=== PATIENT | male | born 1960 ===

== ENCOUNTER 2019-05-30 19:21 | Observation (INO) | payer OTHER ==
[2019-05-30 19:49] VITALS: BMI 30.9
--- NOTE | 2019-05-30 19:55 | PDOC ---
History of Present Illness - General Chief Complaint: Chest Pain Stated Complaint: SENT BY PCP - History of Present Illness Initial Comments: The pt is a 58M w/ a history of HTN, HLD, and diet controlled DM who presents for evaluation of 1 week of worsening dyspnea on exertion and chest pain. The pain is achy/sharp, left-sided, sometimes associated with FARFAN, exacerbated by activity, and alleviated by rest. The pt had a positive stress test 1 week ago ( and since that time states his symptoms have worsened). He is scheduled for a cardiac cath on 06/13/19. He denies fevers/chills, vision changes, current CP or SOB, abdominal pain, N/V/ C/D, dysuria, hematuria, or changes in sensation PMH: HTN, HLD, DM, GERD PSH: Fistula surgery on back at age 19 Meds: Metoprolol, Atrovastatin, Lisinopril Allergies: Denies SH: Quit smoking 20 yrs ago, social EtOH, denies illicit drug use PCP: Dr. Emma Angel Cards: [facility] 05/30/19 20:16 Past History - Past Medical History Allergies/Adverse Reactions: Allergies Allergy/AdvReac Type Severity Reaction Status Date / Time No Known Allergies Allergy Verified 05/30/19 19:38 Home Medications: Ambulatory Orders Aspirin [ASA -] 1 tab PO DAILY 04/01/19 Famotidine [Pepcid] 1 tab PO DAILY 04/01/19 Lisinopril 1 tab PO DAILY 04/01/19 Atorvastatin Calcium [Lipitor] 10 mg PO DAILY 05/30/19 Metoprolol Succinate 25 mg PO DAILY 05/30/19 Cardiac Disorders: Yes COPD: No Diabetes: Yes HTN: Yes - Suicide/Smoking/Psychosocial Hx Smoking History: Former smoker Have you smoked in the past 12 months: No If you are a former smoker, when did you quit?: 1999 Information on smoking cessation initiated: No Drug/Substance Use Hx: No Review of Systems - Review of Systems Able to Perform ROS?: Yes Comments:: GENERAL/CONSTITUTIONAL: No fever or chills HEAD, EYES, EARS, NOSE AND THROAT: No change in vision. No change in hearing. No sore throat CARDIOVASCULAR: +exertional chest pain and HARTLEY RESPIRATORY: Denies cough GASTROINTESTINAL: No nausea, vomiting, diarrhea or constipation GENITOURINARY: No dysuria, frequency, or change in urination MUSCULOSKELETAL: No joint or muscle swelling or pain. No neck or back pain SKIN: No rash NEUROLOGIC: No headache, vertigo, loss of consciousness, or change in strength/ sensation ENDOCRINE: No increased thirst. No abnormal weight change HEMATOLOGIC/LYMPHATIC: No anemia, easy bleeding, or history of blood clots ALLERGIC/IMMUNOLOGIC: No hives or skin allergy 05/30/19 19:54 Is the patient limited Albanian proficient: No *Physical Exam - Vital Signs Last Vital Signs Temp Pulse Resp BP Pulse Ox 97.9 F 94 H 18 135/84 100 05/30/19 19:32 05/30/19 19:32 05/30/19 19:32 05/30/19 19:32 05/30/19 19:32 - Physical Exam Comments: GENERAL: Awake, alert, and oriented to person/place/time, in no acute distress HEAD: No signs of trauma, normocephalic, atraumatic EYES: PERRLA, EOMI, sclera anicteric, conjunctiva clear ENT: Hearing grossly normal, nares patent, oropharynx clear without exudates. Moist mucosa LUNGS: No distress, speaks in full sentences, clear to auscultation bilaterally HEART: Regular rate and rhythm, normal S1 and S2, no murmurs appreciated, peripheral pulses normal and equal bilaterally ABDOMEN: Soft, nontender, normoactive bowel sounds. No guarding, no rebound EXTREMITIES: Normal inspection, Normal range of motion, no edema. No clubbing or cyanosis NEUROLOGICAL: Cranial nerves II through XII grossly intact. Normal speech, normal gait, no focal sensorimotor deficits SKIN: Warm, Dry 05/30/19 19:55 ED Treatment Course - LABORATORY CBC & Chemistry Diagram: 05/30/19 20:33 05/30/19 20:33 Medical Decision Making - Medical Decision Making The pt is a 58M w/ a history of HTN, HLD, and diet controlled DM who presents for evaluaiton of 1 week of worsening exertional chest pain and HARTLEY and positive stress test 1 week ago Ddx: ACS, consider but less likely PNA, AD, TAA ED Course CMP, CBC, Cardiac profile Pt took ASA 325mg PO at home today ECG CXR ECG w/ NSR; HR 89; left axis deviation, QTc 430; no significant LU 05/30/19 20:21 No leukocytosis No anemia Lytes wnl LFTs wnl No GUERLINE Trop I neg Consult order placed for Cardiology Plan for tele obs for acs 05/30/19 21:41 *DC/Admit/Observation/Transfer Diagnosis at time of Disposition: ACS (acute coronary syndrome) HTN (hypertension) Qualifiers: Hypertension type: unspecified Qualified Code(s): I10 - Essential (primary) hypertension Diabetes mellitus Qualifiers: Diabetes mellitus type: other specified (including WAYNE) Diabetes mellitus shelter insulin use: without exterminator helper termite use Diabetes mellitus complication status: without complication Qualified Code(s): E13.9 - Other specified diabetes mellitus without complications - Discharge Dispostion Condition at time of disposition: Good Decision to Admit order: Yes - Referrals - Patient Instructions - Post Discharge Activity
--- NOTE | 2019-05-30 20:28 | PDOC ---
Documentation entered by Aruna Nino SCRIBE, acting as scribe for John Aguilera MD. John Aguilera MD: This documentation has been prepared by the Trung villarreal Xhesika, SCRIBE, under my direction and personally reviewed by me in its entirety. I confirm that the documentation accurately reflects all work, treatment, procedures, and medical decision making performed by me. Attending Attestation - Resident Resident Name: Kunal Haro - ED Attending Attestation I have performed the following: I have examined & evaluated the patient, The case was reviewed & discussed with the resident, I agree w/resident's findings & plan, Exceptions are as noted - HPI HPI: 05/30/19 20:16 The patient is a 58 year old male with a significant PMH of DM (diet controlled ), HTN and HLD, who presents to the emergency department with 1week of exertional chest pain. Patient describes the pain as sharp left sided pain, aggravated with activity and alleviated at rest. Patient states he had a positive stress test 1 week ago and his PCP, Dr. Castano advised him to come to the ED for cardiac workup. Patient notes he was seen in 5 different hospitals for similar symptoms in the past. Patient states he took 325mg Aspirin at home. Patient states he is scheduled for a cardiac cath on 06/13/19. The patient denies shortness of breath, headache and dizziness. Denies fever, chills, cough, nausea, vomiting, diarrhea and constipation. Denies dysuria, frequency, urgency and hematuria. Allergies: NKDA - Physicial Exam PE: 05/30/19 20:29 Agree with exam as documented by resident - Medical Decision Making 05/30/19 20:29 Worsening of exertional chest and dyspnea over the past week Consider ACS, unstable angina f/u labs, ekg, cxr dispo per clincial course, likely admit for acs eval 05/31/19 01:44 admit tele obs
[2019-05-30 20:55] LABS: BASO % 0.4 % (0-2.0); EOS % 3.7 % (0-4.5); HEMATOCRIT 40.4 % (35.4-49); LYMPH % 36.4 % (8-40); MCH 31.1 pg (25.7-33.7); MCHC 34.8 g/dl (32.0-35.9); MEAN CELL VOLUME 89.3 fl (80-96); MEAN PLT VOLUME 7.8 fl (7.5-11.1); NEUT % 51.5 % (42.8-82.8); PLATELET COUNT 187 K/MM3 (134-434); RBC 4.52 M/mm3 (4.00-5.60); RDW 13.1 % (11.9-15.9); WHITE BLOOD COUNT 4.7 K/mm3 (4.0-10.0)
[2019-05-30 21:22] LABS: ALBUMIN 4.3 g/dl (3.4-5.0); BILIRUBIN,TOTAL 0.9 mg/dL (0.2-1); BLOOD UREA NITROGEN 16.4 mg/dL (7-18); CALCIUM 9.5 mg/dL (8.5-10.1); CREATININE 0.9 mg/dL (0.55-1.3); MAGNESIUM 2.4 mg/dL (1.8-2.4); POTASSIUM 4.1 mmol/L (3.5-5.1); TOT PROT 7.4 g/dl (6.4-8.2)
--- NOTE | 2019-05-30 23:30 | HP ---
Admitting History and Physical - Primary Care Physician PCP: Ann Angel - Admission Chief Complaint: Chest Pain History of Present Illness: This is a 58 y/o man with a PMHx of HTN, HLD, DM (diet controlled), GERD, Former Smoker (20 yrs ago). Who presents to the ED with midsternal CP radiating to his L- shoulder/back aspect after carrying 5 gallon water.Patient reports carrying the water then when he arrived home he bagan to have sharp CP/Pressure which radiates, as well as SOB. Patient reports having a + Stress Test last Monday and scheduled for a Cardiac Cath on 06/13/19. he reports calling his steel sash erector who advised him to go to the ED for evaluatio. Patient reprots on arrival CP 01/16- now resolved. Patient denies fever, chills, cough, palpations, AP, N/V/D, constipation, dysuria History Source: Patient Limitations to Obtaining History: No Limitations - Past Medical History Cardiovascular: Yes: HTN, Hyperlipdemia Gastrointestinal: Yes: GERD - Past Surgical History Additional Past Surgical History: Fistula Repair (age 19) - Smoking History Smoking history: Former smoker Have you smoked in the past 12 months: No If you are a former smoker, when did you quit?: 1999 - Alcohol/Substance Use Hx Alcohol Use: No History of Substance Use: reports: None - Social History Usual Living Arrangement: Yes: With Spouse ADL: Independent History of Recent Travel: No Home Medications - Allergies Allergies/Adverse Reactions: Allergies Allergy/AdvReac Type Severity Reaction Status Date / Time No Known Allergies Allergy Verified 05/30/19 19:38 - Home Medications Home Medications: Ambulatory Orders Aspirin [ASA -] 1 tab PO DAILY 04/01/19 Famotidine [Pepcid] 1 tab PO DAILY 04/01/19 Lisinopril 1 tab PO DAILY 04/01/19 Atorvastatin Calcium [Lipitor] 10 mg PO DAILY 05/30/19 Metoprolol Succinate 25 mg PO DAILY 05/30/19 Family Disease History - Family Disease History Family Disease History: Other: Father (Alive and Healthy), Mother (- Perforation of Abdomen), Brother (x3 Alive and Healthy) Review of Systems - Review of Systems Constitutional: reports: No Symptoms Eyes: reports: No Symptoms HENT: reports: No Symptoms Neck: reports: No Symptoms Cardiovascular: reports: Chest Pain Respiratory: reports: No Symptoms, Cough, Exercise Intolerance Gastrointestinal: reports: No Symptoms Genitourinary: reports: No Symptoms Breasts: reports: No Symptoms Reported Musculoskeletal: reports: Extremity Pain Integumentary: reports: No Symptoms Neurological: reports: No Symptoms Endocrine: reports: No Symptoms Hematology/Lymphatic: reports: No Symptoms Psychiatric: reports: No Symptoms Pain Intensity: 4 Physical Examination Vital Signs: Vital Signs Temperature 98.3 F 05/30/19 22:05 Pulse Rate 80 05/30/19 22:05 Respiratory Rate 16 05/30/19 22:05 Blood Pressure 102/55 L 05/30/19 22:05 O2 Sat by Pulse Oximetry (%) 96 05/30/19 22:05 Constitutional: Yes: Well Nourished, No Distress, Calm, Obese Eyes: Yes: WNL, Conjunctiva Clear, EOM Intact, PERRL HENT: Yes: WNL, Atraumatic, Normocephalic Neck: Yes: WNL, Supple, Trachea Midline Cardiovascular: Yes: WNL, Regular Rate and Rhythm, S1, S2, Other (CP is non- reproducible) Respiratory: Yes: WNL, Regular, CTA Bilaterally Gastrointestinal: Yes: WNL, Normal Bowel Sounds, Soft ...Rectal Exam: Yes: Deferred Renal/: Yes: WNL Breast(s): Yes: WNL Musculoskeletal: Yes: Muscle Pain Extremities: Yes: WNL Edema: No Peripheral Pulses WNL: Yes Integumentary: Yes: WNL Neurological: Yes: WNL, Alert, Oriented, Cran Nerves II-XII Intact ...Motor Strength: WNL Psychiatric: Yes: WNL, Alert, Oriented Labs: CBC, BMP 05/30/19 20:33 05/30/19 20:33 Laboratory Results - last 24 hr 05/30/19 05/30/19 05/30/19 20:33 20:33 20:33 WBC 4.7 RBC 4.52 Hgb 14.0 Hct 40.4 MCV 89.3 MCH 31.1 MCHC 34.8 RDW 13.1 Plt Count 187 MPV 7.8 Absolute Neuts (auto) 2.4 Neutrophils % 51.5 Lymphocytes % 36.4 Monocytes % 8.0 Eosinophils % 3.7 Basophils % 0.4 Nucleated RBC % 0 Sodium 137 Potassium 4.1 Chloride 102 Carbon Dioxide 29 Anion Gap 6 L BUN 16.4 Creatinine 0.9 Est GFR (CKD-EPI)AfAm 108.73 Est GFR (CKD-EPI)NonAf 93.82 Random Glucose 154 H Calcium 9.5 Magnesium 2.4 Total Bilirubin 0.9 AST 25 ALT 33 Alkaline Phosphatase 91 Creatine Kinase 192 Creatine Kinase Index 1.8 CK-MB (CK-2) 3.5 Troponin I < 0.02 Total Protein 7.4 Albumin 4.3 Intake & Output 05/28/19 05/29/19 05/30/19 05/31/19 23:59 23:59 23:59 23:59 Weight 87.09 kg Current Medications Generic Name Dose Route Start Last Admin Trade Name Freq PRN Reason Stop Dose Admin Aspirin 81 mg 05/31/19 10:00 Asa - PO DAILY JORGE Atorvastatin Calcium 10 mg 05/31/19 22:00 Lipitor - PO HS JORGE Lisinopril 5 mg 05/31/19 10:00 Prinivil PO DAILY JORGE Metoprolol Succinate 25 mg 05/31/19 10:00 Toprol Xl - PO DAILY JORGE Ranitidine HCl 150 mg 05/31/19 10:00 Zantac - PO DAILY JORGE Imaging - Results Chest X-ray: Image Reviewed Ultrasound: Report Reviewed, Image Reviewed EKG: Image Reviewed Problem List - Problems (1) Chest pain Assessment/Plan: r/o ACS vs Muscular Strain HEART Score 4 Prior +Stress Test- scheduled for Cardiac Cath next month Continue monitoring engineer Serial Enzymes negx1, will trend Patient reports recent Echo, will need to obtain results Appreciate Cardiology consult Full Strength Asa took at home Asa daily Continue BB, Statin Monitor CBC, BMP Code(s): R07.9 - CHEST PAIN, UNSPECIFIED (2) HTN (hypertension) Assessment/Plan: stable Monitor BP Continue home med Monitor renal function Code(s): I10 - ESSENTIAL (PRIMARY) HYPERTENSION Qualifiers: Hypertension type: unspecified Qualified Code(s): I10 - Essential (primary ) hypertension (3) HLD (hyperlipidemia) Assessment/Plan: stable Continue home med Monitor LFTs Code(s): E78.5 - HYPERLIPIDEMIA, UNSPECIFIED (4) Diabetes mellitus Assessment/Plan: stable Diet controlled BGMs ISS HgbA1c in am Code(s): E11.9 - TYPE 2 DIABETES MELLITUS WITHOUT COMPLICATIONS Qualifiers: Diabetes mellitus type: other specified (including WAYNE) Diabetes mellitus manager terminal insulin use: without manager terminal use Diabetes mellitus complication status: without complication Qualified Code(s): E13.9 - Other specified diabetes mellitus without complications (5) Pain of left lower extremity Assessment/Plan: r/o DVT Wells Score 1 Duplex of LLE- neg DVT, +morris's cyst to posterior fossa Tylenol prn Code(s): M79.605 - PAIN IN LEFT LEG Assessment/Plan This is a 58 y/o man with a PMHx of HTN, HLD, DM, GERD. Placed in Telemetry Observation for Chest Pain r/o ACS for further evaluation of their emergent condition. Plan: See Problem List FEN PO fluids as tolerated Replete lytes prn Low Na, Diabetic Diet DVT ppx OOB SCDs Consider AC if LOC > 48hrs Dispo: Observation Visit type - Emergency Visit Emergency Visit: Yes ED Registration Date: 05/30/19 Care time: The patient presented to the Emergency Department on the above date and was hospitalized for further evaluation of their emergent condition. - New Patient This patient is new to me today: Yes Date on this admission: 05/30/19 - Critical Care Critical Care patient: No
[2019-05-31 06:11] LABS: ANION GAP 6 MMOL/L (8-16); BLOOD UREA NITROGEN 14.1 mg/dL (7-18); CHLORIDE 106 mmol/L (98-107); CO2 29 mmol/L (21-32); CREATININE 0.8 mg/dL (0.55-1.3); GLUCOSE,RANDOM 110 mg/dL (74-106); MAGNESIUM 2.3 mg/dL (1.8-2.4); PHOSPHOROUS 3.7 mg/dL (2.5-4.9); POTASSIUM 3.9 mmol/L (3.5-5.1); SODIUM 141 mmol/L (136-145)
[2019-05-31 07:57] LABS: BASO % 0.4 % (0-2.0); EOS % 3.8 % (0-4.5); HEMATOCRIT 38.4 % (35.4-49); HEMOGLOBIN 13.4 GM/dL (11.7-16.9); LYMPH % 34.5 % (8-40); MCH 31.2 pg (25.7-33.7); MCHC 34.8 g/dl (32.0-35.9); MEAN CELL VOLUME 89.7 fl (80-96); MEAN PLT VOLUME 8.1 fl (7.5-11.1); NEUT % 52.3 % (42.8-82.8); PLATELET COUNT 163 K/MM3 (134-434); RBC 4.29 M/mm3 (4.00-5.60); RDW 12.8 % (11.9-15.9)
[2019-05-31] MEDS ORDERED: ASPIRIN 81 MG CHEWABLE TABLETS PO SCH (10:00)
[2019-05-31] MEDS ORDERED: LISINOPRIL 5 MG TABLET (FP) PO SCH (10:00)
[2019-05-31] MEDS ORDERED: metoPROLOL SUCCINATE 25 MG TAB.SR.24H (FP) PO SCH (10:00)
[2019-05-31] MEDS ORDERED: RANITIDINE HCL 150 MG TABLET (FP) PO SCH (10:00)
--- NOTE | 2019-05-31 11:45 | EKG ---
Test Reason : Blood Pressure : / mmHG Vent. Rate : 085 BPM Atrial Rate : 085 BPM P-R Int : 170 ms QRS Dur : 082 ms QT Int : 362 ms P-R-T Axes : 042 -07 030 degrees QTc Int : 430 ms NORMAL SINUS RHYTHM NORMAL ECG WHEN COMPARED WITH ECG OF 30-MAY-2019 19:35, NO SIGNIFICANT CHANGE WAS FOUND Confirmed by ALYCIA CABEZAS MD ([id number]) on 05/31/2019 11:45:02 AM Referred By: Confirmed By:ALYCIA CABEZAS MD
--- NOTE | 2019-05-31 11:46 | EKG ---
Test Reason : Blood Pressure : / mmHG Vent. Rate : 089 BPM Atrial Rate : 089 BPM P-R Int : 184 ms QRS Dur : 082 ms QT Int : 354 ms P-R-T Axes : 051 -16 042 degrees QTc Int : 430 ms NORMAL SINUS RHYTHM POSSIBLE LEFT ATRIAL ENLARGEMENT CANNOT RULE OUT ANTERIOR INFARCT , AGE UNDETERMINED ABNORMAL ECG NO PREVIOUS ECGS AVAILABLE Confirmed by ALYCIA CABEZAS MD ([id number]) on 05/31/2019 11:46:04 AM Referred By: Confirmed By:ALYCIA CABEZAS MD
[2019-05-31 12:05] LABS: CHOLESTEROL 193 mg/dL (50-200); HDL CHOLESTEROL 37 mg/dL (40-60); TRIGLYCERIDES 152 mg/dL (0-150)
[2019-05-31 16:04] VITALS: BP 115/68; PULSE 85; TEMP 98.4
--- NOTE | 2019-05-31 16:11 | PN ---
Progress Note, Physician - Current Medication List Current Medications: Active Medications Aspirin (Asa -) 81 mg PO DAILY [facility] Last Admin: 05/31/19 10:45 Dose: 81 mg Atorvastatin Calcium (Lipitor -) 40 mg PO [facility] Lisinopril (Prinivil) 5 mg PO DAILY [facility] Last Admin: 05/31/19 10:45 Dose: 5 mg Metoprolol Succinate (Toprol Xl -) 25 mg PO DAILY [facility] Last Admin: 05/31/19 10:45 Dose: 25 mg Ranitidine HCl (Zantac -) 150 mg PO DAILY [facility] Last Admin: 05/31/19 10:45 Dose: 150 mg - Objective Vital Signs: Vital Signs Temperature 98.4 F 05/31/19 16:03 Pulse Rate 85 05/31/19 16:03 Respiratory Rate 16 05/31/19 16:03 Blood Pressure 115/68 05/31/19 16:03 O2 Sat by Pulse Oximetry (%) 97 05/31/19 16:03 Labs: CBC, BMP 05/31/19 06:36 05/31/19 06:00
--- NOTE | 2019-05-31 17:40 | DS ---
Physical Examination Vital Signs: Vital Signs Temperature 98.4 F 05/31/19 16:03 Pulse Rate 85 05/31/19 16:03 Respiratory Rate 16 05/31/19 16:03 Blood Pressure 115/68 05/31/19 16:03 O2 Sat by Pulse Oximetry (%) 97 05/31/19 16:03 Constitutional: Yes: No Distress, Calm Eyes: Yes: Conjunctiva Clear HENT: Yes: Atraumatic Neck: Yes: Supple Cardiovascular: Yes: Regular Rate and Rhythm Respiratory: Yes: Regular, CTA Bilaterally Gastrointestinal: Yes: Normal Bowel Sounds, Soft Musculoskeletal: Yes: WNL Extremities: Yes: WNL Edema: No Neurological: Yes: Alert, Oriented Psychiatric: Yes: Alert, Oriented Labs: CBC, BMP 05/31/19 06:36 05/31/19 06:00 Discharge Summary Reason For Visit: HYPERLIPIDEMIA,ACUTE CORONARY SYNDROM Current Active Problems ACS (acute coronary syndrome) (Acute) Chest pain (Acute) Diabetes mellitus (Acute) HLD (hyperlipidemia) (Acute) HTN (hypertension) (Acute) Pain of left lower extremity (Acute) Hospital Course: Patient is a 58 y/o male with past medical history of HTN, HLD, DM, GERD, former smoker. Patient presented to ER with complaints of mid sternal chest pain radiating to L shoulder/ back after carrying 5 gallon water. Patient says having positive stress test l;ast has cardiac cath scheduled on . In ER EKG shows NSR with left atrial enlargement, troponin neg x 2 denies chest pain or SOB on exam Spoke with Fur Floor Worker Dr Zaidi and patient is cleared for discharged from cardiology POV. Laboratory Tests 05/30/19 05/30/19 05/30/19 20:33 20:33 20:33 WBC 4.7 RBC 4.52 Hgb 14.0 Hct 40.4 MCV 89.3 MCH 31.1 MCHC 34.8 RDW 13.1 Plt Count 187 MPV 7.8 Absolute Neuts (auto) 2.4 Neutrophils % 51.5 Lymphocytes % 36.4 Monocytes % 8.0 Eosinophils % 3.7 Basophils % 0.4 Nucleated RBC % 0 PTT (Actin FS) Sodium 137 Potassium 4.1 Chloride 102 Carbon Dioxide 29 Anion Gap 6 L BUN 16.4 Creatinine 0.9 Est GFR (CKD-EPI)AfAm 108.73 Est GFR (CKD-EPI)NonAf 93.82 Random Glucose 154 H Hemoglobin A1c % Calcium 9.5 Phosphorus Magnesium 2.4 Total Bilirubin 0.9 AST 25 ALT 33 Alkaline Phosphatase 91 Creatine Kinase 192 Creatine Kinase Index 1.8 CK-MB (CK-2) 3.5 Troponin I < 0.02 Total Protein 7.4 Albumin 4.3 Triglycerides Cholesterol Total LDL Cholesterol HDL Cholesterol TSH 05/31/19 05/31/19 05/31/19 06:00 06:36 06:36 WBC 5.0 RBC 4.29 Hgb 13.4 Hct 38.4 MCV 89.7 MCH 31.2 MCHC 34.8 RDW 12.8 Plt Count 163 MPV 8.1 Absolute Neuts (auto) 2.6 Neutrophils % 52.3 Lymphocytes % 34.5 Monocytes % 9.0 Eosinophils % 3.8 Basophils % 0.4 Nucleated RBC % 0 PTT (Actin FS) Sodium 141 Potassium 3.9 Chloride 106 Carbon Dioxide 29 Anion Gap 6 L BUN 14.1 Creatinine 0.8 Est GFR (CKD-EPI)AfAm 114.13 Est GFR (CKD-EPI)NonAf 98.47 Random Glucose 110 H Hemoglobin A1c % 6.4 H Calcium 9.0 Phosphorus 3.7 Magnesium 2.3 Total Bilirubin AST ALT Alkaline Phosphatase Creatine Kinase Creatine Kinase Index CK-MB (CK-2) Troponin I < 0.02 Total Protein Albumin Triglycerides 152 H Cholesterol 193 Total LDL Cholesterol 126 H HDL Cholesterol 37 L TSH 1.69 05/31/19 14:45 WBC RBC Hgb Hct MCV MCH MCHC RDW Plt Count MPV Absolute Neuts (auto) Neutrophils % Lymphocytes % Monocytes % Eosinophils % Basophils % Nucleated RBC % PTT (Actin FS) 35.5 Sodium Potassium Chloride Carbon Dioxide Anion Gap BUN Creatinine Est GFR (CKD-EPI)AfAm Est GFR (CKD-EPI)NonAf Random Glucose Hemoglobin A1c % Calcium Phosphorus Magnesium Total Bilirubin AST ALT Alkaline Phosphatase Creatine Kinase Creatine Kinase Index CK-MB (CK-2) Troponin I Total Protein Albumin Triglycerides Cholesterol Total LDL Cholesterol HDL Cholesterol TSH Active Medications Generic Name Dose Route Start Last Admin Trade Name Freq PRN Reason Stop Dose Admin Aspirin 81 mg 05/31/19 10:00 05/31/19 10:45 Asa - PO 81 mg DAILY JORGE Administration Atorvastatin Calcium 40 mg 05/31/19 22:00 Lipitor - PO HS JORGE Lisinopril 5 mg 05/31/19 10:00 05/31/19 10:45 Prinivil PO 5 mg DAILY JORGE Administration Metoprolol Succinate 25 mg 05/31/19 10:00 05/31/19 10:45 Toprol Xl - PO 25 mg DAILY JORGE Administration Ranitidine HCl 150 mg 05/31/19 10:00 05/31/19 10:45 Zantac - PO 150 mg DAILY JORGE Administration Condition: Good - Instructions Diet, Activity, Other Instructions: Follow up with Fur Floor Worker Dr Zaidi in 1 week Follow up with PMD in 1 week continue with medication as prescribed return to ER if develop severe pain, chest pain, respiratory distress Referrals: Peter Zaidi MD [Staff Physician] - Disposition: HOME - Home Medications Comprehensive Discharge Medication List: Ambulatory Orders Aspirin [ASA -] 1 tab PO DAILY 04/01/19 Famotidine [Pepcid] 1 tab PO DAILY 04/01/19 Lisinopril 1 tab PO DAILY 04/01/19 Metoprolol Succinate 25 mg PO DAILY 05/30/19 Atorvastatin Ca [Lipitor] 40 mg PO HS #30 tablet 05/31/19 Nitroglycerin Sublingual [Nitrostat -] 0.4 mg SL ONCE PRN #30 tab 05/31/19
--- NOTE | 2019-05-31 17:43 | CON.CARD ---
Consult Consult Specialty:: cardiology Reason for Consultation:: chest pain; recent +Stress MIBI - History of Present Illness Chief Complaint: Pt A&Ox3; anxious; no chest pain all day. His is at bedside. History of Present Illness: The patient is a 58 year old male (candis Medina) with a significant PMH of DM ( diet controlled), HTN and HLD, who presents to the emergency department with 1week of exertional chest pain. Patient describes the pain as sharp left sided pain, aggravated with activity and alleviated at rest. Patient states he had a positive stress test 1 week ago and his PCP, Dr. Castano advised him to come to the ED for cardiac workup. Patient notes he was seen in 5 different hospitals for similar symptoms in the past. Patient states he took 325mg Aspirin at home. Pt had a positive stress MIBI earlier this week; he is scheduled for a cardiac cath on 06/13/19. - History Source History Provided By: Patient, Family Member, Medical Record Limitations to Obtaining History: No Limitations - Past Medical History Cardio/Vascular: Yes: HTN, Hyperlipdemia Gastrointestinal: Yes: GERD - Alcohol/Substance Use Hx Alcohol Use: No History of Substance Use: reports: None - Smoking History Smoking history: Former smoker Have you smoked in the past 12 months: No If you are a former smoker, when did you quit?: 1999 - Social History ADL: Independent History of Recent Travel: No Home Medications - Allergies Allergies/Adverse Reactions: Allergies Allergy/AdvReac Type Severity Reaction Status Date / Time No Known Allergies Allergy Verified 05/30/19 19:38 - Home Medications Home Medications: Ambulatory Orders Aspirin [ASA -] 1 tab PO DAILY 04/01/19 Famotidine [Pepcid] 1 tab PO DAILY 04/01/19 Lisinopril 1 tab PO DAILY 04/01/19 Metoprolol Succinate 25 mg PO DAILY 05/30/19 Atorvastatin Ca [Lipitor] 40 mg PO HS #30 tablet 05/31/19 Nitroglycerin Sublingual [Nitrostat -] 0.4 mg SL ONCE PRN #30 tab 05/31/19 Family Disease History - Family Disease History Family Disease History: Other: Father (Alive and Healthy), Mother (- Perforation of Abdomen), Brother (x3 Alive and Healthy) Vital Signs: Vital Signs Temperature 98.4 F 08/23/19 16:03 Pulse Rate 85 05/31/19 16:03 Respiratory Rate 16 05/31/19 16:03 Blood Pressure 115/68 05/31/19 16:03 O2 Sat by Pulse Oximetry (%) 97 05/31/19 16:03 - Other Data Labs, Other Data: CBC, BMP 05/31/19 06:36 05/31/19 06:00 Troponin, BNP 05/30/19 05/31/19 20:33 06:00 Troponin I < 0.02 < 0.02 Troponin, BNP 05/30/19 05/31/19 20:33 06:00 Troponin I < 0.02 < 0.02 Problem List - Problems (1) Atypical chest pain Assessment/Plan: TNI < 0.02 x 2. EKG: normal sinus rhythm; normal study. Plan: Pt will be followed as an outpatient. Start sl NTG 0.4 mg prn for chest pain (and will start Imdur if episodes occur more frequently). Increase atorvastatin from 10 mg to 40 mg dailly (LDL 126/HDL 37; triglycerides > 150 mg/dL). Continue metoprolol ER and lisinopril. Pt will return to ER if pain recurs and is refractory to above regimen. [facility] June. Code(s): R07.89 - OTHER CHEST PAIN (2) Anxiety Code(s): F41.9 - ANXIETY DISORDER, UNSPECIFIED (3) Diabetes mellitus Assessment/Plan: HGBA1c elevated (6.4). Code(s): E11.9 - TYPE 2 DIABETES MELLITUS WITHOUT COMPLICATIONS Qualifiers: Diabetes mellitus type: other specified (including WAYNE) Diabetes mellitus manager intermediate insulin use: without assisted use Diabetes mellitus complication status: without complication Qualified Code(s): E13.9 - Other specified diabetes mellitus without complications (4) HLD (hyperlipidemia) Assessment/Plan: increase atorvastatin to 40 mg daily (LDL 126 mg/dL presently). Code(s): E78.5 - HYPERLIPIDEMIA, UNSPECIFIED (5) HTN (hypertension) Code(s): I10 - ESSENTIAL (PRIMARY) HYPERTENSION Qualifiers: Hypertension type: unspecified Qualified Code(s): I10 - Essential (primary ) hypertension
[2019-05-31] MEDS ORDERED: ATORVASTATIN CA 10 MG TABLET (FP) PO SCH (22:00)
[2019-05-31] MEDS ORDERED: ATORVASTATIN CA 40 MG TABLET (FP) PO SCH (22:00)
== END 2019-05-31 18:30 | disposition home or self-care (01) ==
LOC: JER 19:21 → JERBED 20:13
PROVIDERS: ADMIT Family Medicine; ATTEND Family Medicine
DX: R07.89 Other chest pain (principal); F41.9 Anxiety disorder, unspecified; I10 Essential (primary) hypertension; E13.9 Other specified diabetes mellitus without complications; E78.5 Hyperlipidemia, unspecified; K21.9 Gastro-esophageal reflux disease without esophagitis; M79.605 Pain in left leg; Z87.891 Personal history of nicotine dependence; Z79.82 Long term (current) use of aspirin
CPT/HCPCS: 36415; 71045-TC-FY; 80048; 80053; 80061; 82550; 82553; 83036; 83721; 83735; 84100; 84443; 84484; 85025; 85730; 93005; 93010; 99285-25; G0378